=== PATIENT | female | born 1955 | race Caucasian/White ===

== ENCOUNTER → 2017-04-07 | Outpatient (CLI) | payer BC ==
[~2017-04-07] MED LIST: ASPIRIN ENTERI325 M1 PO; ASPIRIN PO; B COMPLEX/FOLIC1 TAB PO; CALCIUM 500 + D1 TAB PO; CALCIUM 500 +1 EAC2 PO; CHROMIUM PICO400 MCG PO; FIBER LAXATIVE0.52 G PO; FLAGYL PO; INDAPAMIDE1.25 MG PO; LEVAQUIN PO; LIPITOR PO; LOTREL 10/20 MG1 CAP PO; LOTREL 5/10 MG1 CAP PO; LOZOL PO; METFORMIN HCL500 M1 PO; METFORMIN PO; NEXIUM PO; PLAVIX PO; POTASSIUM GLU PO; PREMARIN PO; PREMARIN1.25 MG PO; PROTONIX PO; ROBINUL FORTE2 MG PO; SELENIUM PO; TRICOR PO; TRILIPIX135 MG PO; VITAMIN C PO; [UNRECOGNIZED DRUG - OTHER]
== END | disposition home or self-care (01) ==
LOC: CECH 13:23
DX: R06.02 Shortness of breath (principal); R60.0 Localized edema; I35.8 Other nonrheumatic aortic valve disorders; I36.1 Nonrheumatic tricuspid (valve) insufficiency
CPT/HCPCS: 93306